=== PATIENT | female | born 2000 | race African-American/Black ===

== ENCOUNTER 2021-11-13 09:27 | Emergency (ER) | payer SELFPAY ==
[~2021-11-13] VITALS: Ht 175.3 cm; Wt 68.2 kg
[2021-11-13 09:39] VITALS: TEMP 98.4
[2021-11-13] MEDS ORDERED: NAPROSYN500 MG PO (09:43)
[2021-11-13] MEDS ORDERED: CEPHALEXIN500 M1 PO (10:55)
[2021-11-13] MEDS ORDERED: PERCOCET 325 MG1 TA2 PO (10:55)
[2021-11-13 11:13] VITALS: BP 136/86; PULSE 106
== END 2021-11-13 11:05 | disposition home or self-care (01) ==
LOC: COL.ER 09:27
DX: L02.31 Cutaneous abscess of buttock (principal); N89.8 Other specified noninflammatory disorders of vagina; F17.200 Nicotine dependence, unspecified, uncomplicated
CPT/HCPCS: J0696